=== PATIENT | female | born 1965 | race African-American/Black ===

== ENCOUNTER 2017-04-16 14:10 | Emergency (ER) | payer OTHER ==
[~2017-04-16] VITALS: Ht 165.1 cm; Wt 86.2 kg
[2017-04-16 14:30] VITALS: BP 125/75
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
[2017-04-16] MEDS ORDERED: CYCLOBENZAPRINE10 MG ORAL (16:07)
[2017-04-16] MEDS ORDERED: IBUPROFEN600 MG ORAL (16:07)
[2017-04-16 16:33] VITALS: BP 125/75
== END 2017-04-16 16:33 | disposition home or self-care (01) ==
LOC: EMR 15:18
DX: S29.012A Strain of muscle and tendon of back wall of thorax, initial encounter (principal); V43.62XA Car passenger injured in collision with other type car in traffic accident, initial encounter; Y92.410 Unspecified street and highway as the place of occurrence of the external cause
CPT/HCPCS: 99284

== ENCOUNTER 2017-05-23 14:36 | Emergency (ER) | payer OTHER ==
[~2017-05-23] VITALS: Ht 162.6 cm; Wt 81.6 kg
[~2017-05-23 14:36] MED LIST: CYCLOBENZAPRINE10 MG ORAL; IBUPROFEN600 MG ORAL
[2017-05-23] MEDS ORDERED: Norco 7.5mg/325mg tab ORAL ONE (15:00)
[2017-05-23 15:10] VITALS: BP 131/87
[2017-05-23] MEDS ORDERED: IBUPROFEN600 MG ORAL (16:07)
[2017-05-23] MEDS ORDERED: ACETAMINOPHEN-1 EAC1 ORAL (16:07)
[2017-05-23 16:15] VITALS: BP 131/87
--- NOTE | 2017-05-23 20:33 | Emergency Room Report ---
History of Present Illness General Chief Complaint: Multiple Trauma/Fall Source: Patient Present Illness HPI The patient is a 52-year-old female presenting for pain after falling today. She states that she slipped and fell onto her left hand and knee. She denies hitting head or loss of consciousness. Pain is 7/10 dull ache and does not radiate from these areas. Worse with movement and touch. She denies any other symptoms Allergies: Coded Allergies: No Known Allergies (Unverified , 04/16/17) Patient History Past Medical History: see triage record Pertinent Family History: none Reviewed Nursing Documentation: PMH: Agreed, PSxH: Agreed Nursing Documentation-PMH Hx Cardiac Problems: No Hx Hypertension: No Hx Pacemaker: No Hx Asthma: No Hx COPD: No Hx Diabetes: No Hx Cancer: No Hx Gastrointestinal Problems: No Hx Dialysis: No History Of Psychiatric Problem: No Hx Neurological Problems: No Hx Cerebrovascular Accident: No Hx Seizures: No Review of Systems All Other Systems: negative except mentioned in HPI Physical Exam Vital Signs Date Time Temp Pulse Resp B/P (MAP) Pulse Ox O2 Delivery O2 Flow Rate FiO2 05/23/17 14:41 98.1 83 19 131/87 100 Room Air Sp02 EP Interpretation: reviewed, normal General Appearance: no apparent distress, alert, GCS 15, non-toxic Head: normocephalic, atraumatic Eyes: bilateral eye normal inspection, bilateral eye PERRL ENT: hearing grossly normal, normal pharynx, no angioedema, normal voice Neck: full range of motion, supple/symm/no masses Musculoskeletal: back normal, gait/station normal, decreased range of motion - L wrist, tender - TTP over the L wrist and L anterior knee Neurologic: alert, oriented x3, responsive, motor strength/tone normal, sensory intact, speech normal Psychiatric: judgement/insight normal, memory normal, mood/affect normal, no suicidal/homicidal ideation Skin: normal color, no rash, warm/dry, well hydrated Procedures Splinting Splinting #1: Consent: Verbal Location: L wrist Pre-Made Type: metal Splint: volar Pre-Proc Neuro Vasc Exam: normal Post-Proc Neuro Vasc Exam: normal Patient Tolerated: Well Complications: None Splinting #2: Consent: Verbal Location: L knee Pre-Made Type: TD wrap Pre-Proc Neuro Vasc Exam: normal Post-Proc Neuro Vasc Exam: normal Patient Tolerated: Well Complications: None Medical Decision Making PA Attestation Dr. Hodges is my supervising physician. Patient management was discussed with my supervising physician Diagnostic Impression: Primary Impression: Contusion of knee, left Qualified Codes: S80.02XA - Contusion of left knee, initial encounter Additional Impressions: Fall Qualified Codes: W19.XXXA - Unspecified fall, initial encounter Sprain of wrist, left Qualified Codes: S63.502A - Unspecified sprain of left wrist, initial encounter Multiple injuries due to trauma ER Course The patient is a 52-year-old female presenting for pain after falling today. Ddx considered include but not limited to sprain/strain, fracture, contusion PE: NAD Left wrist: There is diffuse tenderness to palpation with limited active range of motion. No obvious deformity. No edema. No ecchymosis. Radial pulses 2+ Left knee: There is tenderness to palpation over the anterior aspect. No laxity. No edema or ecchymosis. Full active range of motion is intact X-ray of the wrist and knee are unremarkable for acute findings Left knee Td wrap is placed Left wrist volar splint is placed The patient will be discharged home with a prescription for pain medication and needs to followup with her primary doctor. ER precautions are given Last Vital Signs Date Time Temp Pulse Resp B/P (MAP) Pulse Ox O2 Delivery O2 Flow Rate FiO2 05/23/17 16:15 98.1 19 131/87 100 Room Air 05/23/17 14:41 83 Status: improved Disposition: HOME, SELF-CARE Condition: Improved Scripts Acetaminophen With Codeine (T#3) (TYLENOL #3 TAB*) Y Tab 1 TAB ORAL Q6HR Y for For Pain, #10 TAB Prov: TERZIAN,RENEE P.A. 05/23/17 Ibuprofen* (MOTRIN*) 600 Mg Tablet 600 MG ORAL Q8H Y for For Pain, #30 TAB 0 Refills Prov: TERZIAN,RENEE P.A. 05/23/17 Patient Instructions: Knee Pain, Wrist Sprain Additional Instructions: I discussed my findings with the patient. All questions and concerns have been answered. Treatment and medication compliance have been addressed. I advised the patient that they need to follow up with PMD in 3-5 days. Return to ED if pain remains or worsens, numbness or tingling occurs, new rash is noticed, fever is noticed, or if needed for any reason. Patient verbalized understanding of discharge instructions. RENEE MCPHERSON May 23, 2017 20:33
--- NOTE | 2017-05-24 10:40 | Diagnostic Imaging Report ---
Indication: Left knee pain Technique: XRAY KNEE COMP 4 OR MORE VIEWS LEFT Comparison: None Findings: There is no acute fracture or dislocation. No joint effusion is identified. There is degenerative spurring of the patella. Impression: No acute osseous abnormality.
--- NOTE | 2017-05-24 10:40 | Diagnostic Imaging Report ---
Indication: Left wrist pain Technique: XRAY WRIST MIN 3V LEFT Comparison: None Findings: There is no radiographically evident fracture or dislocation. Bone mineralization is normal. Soft tissues are grossly unremarkable. Impression: No radiographically evident evident fracture or dislocation.
== END 2017-05-23 16:15 | disposition home or self-care (01) ==
LOC: EMR 15:53
DX: S80.02XA Contusion of left knee, initial encounter (principal); S63.502A Unspecified sprain of left wrist, initial encounter; W01.0XXA Fall on same level from slipping, tripping and stumbling without subsequent striking against object, initial encounter; Y92.89 Other specified places as the place of occurrence of the external cause
CPT/HCPCS: 29125; 29530; 99284

== ENCOUNTER 2017-07-17 17:11 | Emergency (ER) | payer OTHER ==
[~2017-07-17] VITALS: Ht 162.6 cm; Wt 83.9 kg
[~2017-07-17 17:11] MED LIST changes: +ACETAMINOPHEN-1 EAC1 ORAL
[2017-07-17 17:44] VITALS: BP 127/84
[2017-07-17] MEDS ORDERED: ACETAMINOPHEN-1 EAC1 ORAL (18:14)
[2017-07-17] MEDS ORDERED: KEFLEX500 MG ORAL (18:14)
[2017-07-17] MEDS ORDERED: Bacitracin Oint UD TOPIC ONE (18:15)
[2017-07-17 18:30] VITALS: BP 117/72
--- NOTE | 2017-07-18 11:58 | Emergency Room Report ---
History of Present Illness General Chief Complaint: Animal Bite Source: Patient, Medical Record Present Illness HPI 52-year-old female presents ED complaining of spider bite to her left leg. Occurred one week ago and she was trying treated at home with home remedies. States it is not getting worse but she wanted to have it evaluated. Notes there is pain, throbbing 8 out of 10, nonradiating. Denies fevers or chills. Denies any drainage. No other aggravating or relieving factors. Denies any other associated symptoms Allergies: Coded Allergies: No Known Allergies (Unverified , 04/16/17) Patient History Past Medical History: none Past Surgical History: none Pertinent Family History: none Social History: Denies: smoking, alcohol use, drug use Last Menstrual Period: menopause Now: No Immunizations: UTD Reviewed Nursing Documentation: PMH: Agreed, PSxH: Agreed Nursing Documentation-PMH Past Medical History: No History, Except For Hx Cardiac Problems: No Hx Hypertension: No Hx Pacemaker: No Hx Asthma: No Hx COPD: No Hx Diabetes: No Hx Cancer: No Hx Gastrointestinal Problems: No Hx Dialysis: No Hx Neurological Problems: No Hx Cerebrovascular Accident: No Hx Seizures: No Review of Systems All Other Systems: negative except mentioned in HPI Physical Exam Vital Signs Date Time Temp Pulse Resp B/P (MAP) Pulse Ox O2 Delivery O2 Flow Rate FiO2 07/17/17 17:44 97.9 83 18 127/84 96 Room Air Sp02 EP Interpretation: reviewed, normal General Appearance: no apparent distress, alert, GCS 15, non-toxic Head: normocephalic Eyes: bilateral eye normal inspection, bilateral eye PERRL ENT: normal ENT inspection Neck: normal inspection Respiratory: normal inspection Cardiovascular #1: normal inspection Gastrointestinal: normal inspection Rectal: deferred Genitourinary: no CVA tenderness Musculoskeletal: normal inspection Neurologic: alert, oriented x3, responsive, motor strength/tone normal, sensory intact, speech normal Psychiatric: judgement/insight normal, memory normal, mood/affect normal, no suicidal/homicidal ideation Skin: other - 2x2 cm area of erythema/induration to L baumann. no fluctuance or discharge Lymphatic: normal inspection Medical Decision Making Diagnostic Impression: Primary Impression: Cellulitis Qualified Codes: L03.116 - Cellulitis of left lower limb ER Course Hospital Course 52-year-old female presents to ED with redness, pain to LLE Differential diagnoses include: Cellulitis, dermatitis, insect bite, abscess Clinical course Patient placed on stretcher. After initial history, physical exam reveals a middle aged female in no acute distress. On exam there is a site for mild erythema and induration to the L baumann. There is no fluctuance. Clinical findings consistent with a insect bite with the possible bacterial superinfection. reassurance given Wound is irrigated. Bacitracin and dressing applied. We will discharge him antibiotics Diagnosis - cellulitis stable and discharged to home with prescription for Keflex. Instructed to followup with PMD. Instructed return to ED if symptoms recur or worsen Last Vital Signs Date Time Temp Pulse Resp B/P (MAP) Pulse Ox O2 Delivery O2 Flow Rate FiO2 07/17/17 18:30 97.9 71 16 117/72 99 Room Air Status: improved Disposition: HOME, SELF-CARE Condition: Stable Scripts Acetaminophen With Codeine (T#3) (TYLENOL #3 TAB*) Y Tab 1 TAB ORAL Q8H Y for For Pain, #20 TAB Prov: PROSPER LEE M.D. 07/17/17 Cephalexin* (KEFLEX*) 500 Mg Capsule 500 MG ORAL Q6H, #28 CAP 0 Refills Prov: PROSPER LEE M.D. 07/17/17 Referrals: [facility],REFERRING (PCP) Patient Instructions: Cash Canales, [id number] PROSPER LEE M.D. Jul 18, 2017 11:58
== END 2017-07-17 18:30 | disposition home or self-care (01) ==
LOC: EMR 18:30
DX: L03.116 Cellulitis of left lower limb (principal)
CPT/HCPCS: 99283

== ENCOUNTER 2019-06-02 15:42 | Emergency (ER) | payer OTHER ==
[~2019-06-02] VITALS: Ht 167.6 cm; Wt 85.7 kg
[~2019-06-02 15:42] MED LIST changes: +KEFLEX500 MG ORAL
[2019-06-02 16:07] VITALS: BP 122/77
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
--- NOTE | 2019-06-02 16:41 | Diagnostic Imaging Report ---
Indication: Headache. Head trauma Technique: Contiguous 5 mm thick transaxial imaging of the head obtained in a Siemens Sensation [address] scanner. Soft tissue and bone windows generated. Automatic Exposure Control was utilized. Total Dose length Product (DLP): 1272.[address] Dose Index Volume (CTDIvol): 60 mGy Comparison: none Findings: The size and configuration of the cortical sulci, basal cisterns, and ventricles are within normal limits for age. There is no mass effect, midline shift, or edema identified. There is no evidence of acute hemorrhage or abnormal intra-axial or extra-axial fluid collections. No fracture is seen. There is a focus of metal within the extracranial scalp in the left posterior parietal region with associated artifact limiting visualization of this area of the brain. There is opacification of the left maxillary sinus. Impression: No mass effect, edema or acute bleed. Radiopaque foreign body within the scalp left posterior parietal region. Opacified left maxillary sinus. [place] [facility] [place] [employer] and the scans are performed using dose optimization techniques as appropriate to a performed exam including Automatic Exposure control.
--- NOTE | 2019-06-02 16:51 | Diagnostic Imaging Report ---
Indication: Orbital and maxillofacial trauma and pain Technique: Continuous helical transaxial imaging of the orbits/maxillofacial structures obtained without intravenous contrast administration. Coronal 2-D reformats were also obtained. Study obtained in a Siemens sensation [address] Automatic Exposure Control was utilized. Total Dose length Product (DLP): [address] Dose Index Volume (CTDIvol): 24 mGy Comparison: None Findings: There is no evidence of an acute fracture. There is opacification of the left maxillary sinus presumably inflammatory sinusitis. Paranasal sinuses and mastoids are clear otherwise. Soft tissues are unremarkable. IMPRESSION: No acute injury identified. Left maxillary sinusitis The CT scanner at [facility] is accredited by the [employer] and the scans are performed using dose optimization techniques as appropriate to a performed exam including Automatic Exposure control.
--- NOTE | 2019-06-02 16:52 | Diagnostic Imaging Report ---
Indication: Left shoulder injury pain Comparison: None Findings: 3 views of the left scapula show no evidence of an acute fracture. No malalignment seen. IMPRESSION: Negative evaluation
--- NOTE | 2019-06-02 16:52 | Diagnostic Imaging Report ---
Indication: Left sided rib pain. Trauma. Findings: 4 views of the left chest wall was obtained for evaluation of the ribs. There is no acute fracture identified. There is no soft tissue swelling demonstrated. The lung is essentially clear. There is no pneumothorax. The costophrenic angle is sharp. Other osseous structures visualized are unremarkable. Impression: Negative left unilateral rib series
[2019-06-02] MEDS ORDERED: ACETAMINOPHEN-1 EAC1 ORAL (17:28)
[2019-06-02 17:38] VITALS: BP 128/86
== END 2019-06-02 17:40 | disposition home or self-care (01) ==
LOC: EMR 16:17
DX: S00.93XA Contusion of unspecified part of head, initial encounter (principal); S00.83XA Contusion of other part of head, initial encounter; M25.512 Pain in left shoulder; S20.212A Contusion of left front wall of thorax, initial encounter; Y04.2XXA Assault by strike against or bumped into by another person, initial encounter; Y92.9 Unspecified place or not applicable
CPT/HCPCS: 70450; 70486; 71101; 73010; Z7502; 99284